=== PATIENT | male | born 2000 | race Caucasian/White ===

== ENCOUNTER 2024-06-03 10:19 | Inpatient (IN) | payer SELFPAY ==
[2024-06-03 13:40] VITALS: BP 118/78; PULSE 113; RESP 17; TEMP 36.4; O2SAT 96
[2024-06-03] MEDS: nicotine 4 mg lozenge MUCOUS MEM (13:56)
[2024-06-03] MEDS: hyDROXYzine 25 mg Capsule 50 MG PO (13:56)
[2024-06-03 15:28] VITALS: BMI 36.6
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
[2024-06-03 20:47] VITALS: BP 112/71; PULSE 119; RESP 18; TEMP 36.7; O2SAT 96
[2024-06-03] MEDS: hyDROXYzine 25 mg Capsule 100 MG PO (21:04)
[2024-06-03] MEDS: trazodone 50 mg Tablet PO (21:17)
[2024-06-03] MEDS: OLANZapine 5 mg ODT PO (21:58)
[2024-06-04 06:00] VITALS: BP 104/68; PULSE 85; RESP 17; TEMP 36.4; O2SAT 98
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
[2024-06-04] MEDS: flu vacc pf 24-25 (6 mos+) SYRINGE 45 MCG IM (09:39)
[2024-06-04 14:00] VITALS: BP 96/67; PULSE 98; RESP 16; TEMP 36.7; O2SAT 98
[2024-06-04] MEDS: hyDROXYzine 25 mg Capsule 100 MG PO (20:59)
[2024-06-04] MEDS: OLANZapine 5 mg ODT PO (20:59)
[2024-06-04] MEDS: nicotine 4 mg lozenge MUCOUS MEM (20:59)
[2024-06-04 21:28] VITALS: BP 103/65; PULSE 98; RESP 18; TEMP 36.6; O2SAT 97
[2024-06-04] MEDS: haloperidol 5 mg Tablet PO (22:18)
[2024-06-05 06:00] VITALS: BP 98/75; PULSE 93; RESP 17; TEMP 36.4; O2SAT 97
[2024-06-05] MEDS: paliperidone ER 6 mg Tablet PO (12:07)
--- NOTE | 2024-06-05 12:28 | PC.NURSE ---
NEW ORDERS RECEIVED FROM DR. WOODSON TO START INVEGA 6 MG PO NOW AND THEN DAILY. EDUCATED PT ON NEW ORDERS. VERBALIZED UNDERSTANDING.
--- NOTE | 2024-06-05 12:43 | P.NPUPN_ITS ---
Subjective NPU Subjective: Patient presented today reporting that he is feeling pretty good. He reports feeling confident about our plan with his medication and being hopeful that that works out as well as it was working before the medication seemed to stop working. We discussed the plan for him to get his injection tomorrow and he is reporting that he is tolerating the oral dose that was given to augment his medication. He denies any side effects to the medication and reports that he feels good about everything that is going on here. We discussed the likelihood of getting him the increased dose and then considering discharge in the days to follow. Mental Status Exam MSE Comments: This is an obese white male in hospital scrubs with limited grooming and eye contact. No abnormal movements except for psychomotor retardation. Cooperative with exam in mild distress. Speech was slightly decreased rate and volume. Mood described as a little better than yesterday, affect subdued. Thought process organized. Thought content: Patient denied current suicidal or homicidal ideation, he endorsed having some paranoia and there was guardedness in his assessment, he denied auditory or visual hallucinations. Had a passive wish and attempted suicide by overdosing on trazodone in the past. Experienced auditory hallucinations and has seen things twice. Anxiety is not as severe as it used to be. Experienced severe depression starting in middle school, with symptoms including sleeping too much. Current mood is reported as normal. Stressors include homelessness and family issues. Attention and concent ration were mostly intact and memory was somewhat reliable but none were formally tested. He is alert and oriented x 3. Insight and judgment are limited and impulse control was limited. Vitals/I&O/Wt Last Vital Signs Temp 97.5 F L 06/05/24 06:00 Pulse 93 06/05/24 06:00 Resp 17 06/05/24 06:00 BP 98/75 06/05/24 06:00 Pulse Ox 97 06/05/24 06:00 O2 Del Method Room Air 06/05/24 06:00 Weight last 48 hrs Weight 125.645 kg Weight 122.47 kg A&P Assessment and plan (1) Schizoaffective disorder, bipolar type: (2) Anxiety: (3) Depression: Plan This is a 24-year-old white male with a long history of mental health challenges with some past hospitalizations and current follow-up currently on medications/Invega Sustenna with reports of having breakthrough symptoms on his current dose. Indra Farooq reports having been diagnosed with schizophrenia and bipolar disorder. The patient is experiencing breakthrough symptoms of auditory hallucinations despite being on Invega injection, which was initiated on May 09, 2024. There is a history of manic episodes and a previous diagnosis of bipolar disorder following an overdose on trazodone. The patient also reports a history of depression starting in middle school, with self-injurious behavior occurring as recently as six months ago. Anxiety is present but reportedly less severe than in the past. There is a family history of depression and bipolar disorder. Plan 1. Begin Invega 6 mg orally starting tonight to manage symptoms until the scheduled injection next week. Consider discussing the potential addition of an antidepressant or anti-anxiety agent to address reported symptoms, while avoiding complicating the current medication regimen. Further evaluation and adjustments to be pursued with the social work team starting Wednesday. Continue on the Invega Sustenna but increase that to 234 mg IM on 06/06/2024. 2. Continue every 15 minute checks for safety. 3. Encourage individual, group and milieu therapies. 4. Obtain collateral information. PDMP PDMP Reviewed: Not Reviewed Attestations NPU Medical Necessity Statement*: Inpatient hospitalization is medically necessary and the clinically appropriate intervention at this time. We will monitor medications and make changes as indicated. Likely length of stay 4-6 days. Coding Level of Care Code Acute Code for g Fwd Diagnoses Schizoaffective disorder, bipolar type F25.0 Anxiety F41.9 Depression F32.A
[2024-06-05 14:00] VITALS: BP 122/69; PULSE 97; RESP 17; TEMP 36.4; O2SAT 96
[2024-06-05] MEDS: nicotine 2 mg Gum BUCCAL (15:19)
[2024-06-05] MEDS: nicotine 4 mg lozenge MUCOUS MEM ×3 (16:13→20:43)
[2024-06-05 20:36] VITALS: BP 117/76; PULSE 125; RESP 18; TEMP 36.3; O2SAT 96
[2024-06-05] MEDS: hyDROXYzine 25 mg Capsule 100 MG PO (20:43)
[2024-06-05] MEDS: OLANZapine 5 mg ODT PO (20:43)
[2024-06-05] MEDS: haloperidol 5 mg Tablet PO (21:54)
[2024-06-06 06:00] VITALS: BP 113/75; PULSE 98; RESP 18; TEMP 36.6; O2SAT 96
--- NOTE | 2024-06-06 06:31 | P.NPUPN_ITS ---
Subjective NPU Subjective: Patient presented today reporting that things are going okay. He endorsed that things are fine and there was no issue with the injection today. He reports that he is very excited because he was able to speak to his parents and that they agreed that he could return to their place and live there moving forward. He reports that is where he was living before he became homeless. He reports that the difficulty is that he and his father do not see eye to eye. But he reports it has always been that way and they should be able to manage. He denies any side effects to the medication. Mental Status Exam MSE Comments: This is an obese white male in hospital scrubs with limited grooming and eye contact. No abnormal movements except for psychomotor retardation. Cooperative with exam in mild distress. Speech was slightly decreased rate and volume. Mood described as a little better than yesterday, affect subdued. Thought process organized. Thought content: Patient denied current suicidal or homicidal ideation, he endorsed having some paranoia and there was guardedness in his assessment, he denied auditory or visual hallucinations. Had a passive wish and attempted suicide by overdosing on trazodone in the past. Experienced auditory hallucinations and has seen things twice. Anxiety is not as severe as it used to be. Experienced severe depression [facility] in [facility], with symptoms including sleeping too much. Current mood is reported as normal. Stressors include homelessness and family issues. Attention and concentration were mostly intact and memory was somewhat reliable but none were formally tested. He is alert and oriented x 3. Insight and judgment are limited and impulse control was limited. Vitals/I&O/Wt Last Vital Signs Temp 97.4 F L 06/05/24 20:36 Pulse 125 H 06/05/24 20:36 Resp 18 06/05/24 20:36 BP 117/76 06/05/24 20:36 Pulse Ox 96 06/05/24 20:36 O2 Del Method Room Air 06/05/24 20:36 A&P Assessment and plan (1) Schizoaffective disorder, bipolar type: (2) Anxiety: (3) Depression: Plan This is a 24-year-old white male with a long history of mental health challenges with some past hospitalizations and current follow-up currently on medications/Invega Sustenna with reports of having breakthrough symptoms on his current dose. Indra Farooq reports having been diagnosed with schizophrenia and bipolar disorder. The patient is experiencing breakthrough symptoms of auditory hallucinations despite being on Invega injection, which was initiated on May 09, 2024. There is a history of manic episodes and a previous diagnosis of bi polar disorder following an overdose on trazodone. The patient also reports a history of depression starting in middle school, with self-injurious behavior occurring as recently as six months ago. Anxiety is present but reportedly less severe than in the past. There is a family history of depression and bipolar disorder. Plan 1. Begin Invega 6 mg orally starting tonight to manage symptoms until the scheduled injection next week. Consider discussing the potential addition of an antidepressant or anti-anxiety agent to address reported symptoms, while avoiding complicating the current medication regimen. Further evaluation and adjustments to be pursued with the social work team starting Wednesday. Continue on the Invega Sustenna but increased that to 234 mg IM on 06/06/2024. 2. Continue every 15 minute checks for safety. 3. Encourage individual, group and milieu therapies. 4. Obtain collateral information. Will verify that he is able to return home which would be a much more stable situation and would suggest that discharge would be possible in the next 48 hours. PDMP PDMP Reviewed: Not Reviewed Attestations NPU Medical Necessity Statement*: Inpatient hospitalization is medically necessary and the clinically appropriate intervention at this time. We will monitor medications and make changes as indicated. Likely length of stay 1-3 days. Coding Level of Care Code Acute Code for g Fwd Diagnoses Schizoaffective disorder, bipolar type F25.0 Anxiety F41.9 Depression F32.A
[2024-06-06] MEDS: paliperidone ER 6 mg Tablet PO (08:32)
[2024-06-06] MEDS: paliperidone palmitate 234 mg Syringe IM (11:33)
--- NOTE | 2024-06-06 11:37 | PC.NURSE ---
Invega 234mg/1.5ml given today in right deltoid, pt. tolerated well with no complications.
[2024-06-06 14:00] VITALS: BP 111/66; PULSE 106; RESP 17; TEMP 36.7; O2SAT 96
[2024-06-06] MEDS: nicotine 4 mg lozenge MUCOUS MEM ×2 (17:11→20:35)
[2024-06-06] MEDS: sennosides-docusate Tablet 1 TAB PO (17:47)
[2024-06-06 20:09] VITALS: BP 122/79; PULSE 129; RESP 18; TEMP 36.5; O2SAT 96
[2024-06-06] MEDS: hyDROXYzine 25 mg Capsule 100 MG PO (20:34)
[2024-06-06] MEDS: acetaminophen 325 mg Tablet 650 MG PO (20:34)
[2024-06-06] MEDS: OLANZapine 5 mg ODT PO (20:35)
[2024-06-06] MEDS: haloperidol 5 mg Tablet PO (21:42)
[2024-06-07 06:00] VITALS: BP 90/55; PULSE 86; RESP 18; TEMP 36.5; O2SAT 96
[2024-06-07] MEDS: paliperidone ER 6 mg Tablet PO (08:40)
[2024-06-07] MEDS: sennosides-docusate Tablet 1 TAB PO (08:40)
[2024-06-07] MEDS: nicotine 4 mg lozenge MUCOUS MEM ×3 (12:06→16:32)
[2024-06-07 14:00] VITALS: BP 124/81; PULSE 124; RESP 17; TEMP 36.6; O2SAT 95
--- NOTE | 2024-06-07 14:20 | P.NPUPN_ITS ---
Subjective NPU Subjective: Patient presented today reporting that he is feeling positive. He reports that he is spoken with his family and feels optimistic about things moving forward. He reports that he is tolerating the medication at this time with no issues denying any side effects. He reported being happy about the prospect of the plan for discharge tomorrow and denied any other concerns. Mental Status Exam MSE Comments: This is an obese white male in hospital scrubs with limited grooming and eye contact. No abnormal movements except for psychomotor retardation. Cooperative with exam in mild distress. Speech was slightly decreased rate and volume. Mood described as better, affect less subdued. Thought process organized. Thought content: Patient denied current suicidal or homicidal ideation, he en dorsed reduced paranoia and there were no delusions noted, he denied auditory or visual hallucinations. Attention and concentration were mostly intact and memory was somewhat reliable but none were formally tested. He is alert and oriented x 3. Insight and judgment are improving and impulse control was limited, but improving. Vitals/I&O/Wt Last Vital Signs Temp 97.7 F 06/07/24 06:00 Pulse 86 06/07/24 06:00 Resp 18 06/07/24 06:00 BP 90/55 06/07/24 06:00 Pulse Ox 96 06/07/24 06:00 O2 Del Method Room Air 06/07/24 06:00 A&P Assessment and plan (1) Schizoaffective disorder, bipolar type: (2) Anxiety: (3) Depression: Plan This is a 24-year-old white male with a long history of mental health challenges with some past hospitalizations and current follow-up currently on medications/Invega Sustenna with reports of having breakthrough symptoms on his current dose. Indra Capri reports having been diagnosed with schizophrenia and bipolar disorder. The patient is experiencing breakthrough symptoms of auditory hallucinations despite being on Invega injection, which was initiated on May 09, 2024. There is a history of manic episodes and a previous diagnosis of bipolar disorder following an overdose on trazodone. The patient also reports a history of depression starting in middle school, with self-injurious behavior occurring as recently as six months ago. Anxiety is present but reportedly less severe than in the past. There is a family history of depression and bipolar disorder. Plan 1. Begin Invega 6 mg orally starting tonight to manage symptoms until the scheduled injection next week. Consider discussing the potential addition of an antidepressant or anti-anxiety agent to address reported symptoms, while avoiding complicating the current medication regimen. Further evaluation and adjustments to be pursued with the social work team starting Wednesday. Continue on the Invega Sustenna but increased that to 234 mg IM on 06/06/2024. 2. Continue every 15 minute checks for safety. 3. Encourage individual, group and milieu therapies. 4. Obtain collateral information. Treatment team spoke with family and plan for discharge tomorrow. PDMP PDMP Reviewed: Not Reviewed Attestations NPU Medical Necessity Statement*: Inpatient hospitalization is medically necessary and the clinically appropriate intervention at this time. We will monitor medications and make changes as indicated. Likely length of stay 1 day.. Coding Level of Care Code Acute Code for [facility] Diagnoses Schizoaffective disorder, bipolar type F25.0 Anxiety F41.9 Depression F32.A
[2024-06-07 20:19] VITALS: BP 101/61; PULSE 100; RESP 18; TEMP 36.8; O2SAT 95
[2024-06-07] MEDS: acetaminophen 325 mg Tablet 650 MG PO (20:22)
[2024-06-07] MEDS: hyDROXYzine 25 mg Capsule 100 MG PO (20:23)
[2024-06-07] MEDS: OLANZapine 5 mg ODT PO (20:55)
[2024-06-07] MEDS: haloperidol 5 mg Tablet PO (22:59)
[2024-06-08 06:00] VITALS: BP 110/63; PULSE 96; RESP 18; TEMP 36.6; O2SAT 97
[2024-06-08] MEDS: hyDROXYzine 25 mg Capsule 50 MG PO (08:42)
[2024-06-08] MEDS: paliperidone ER 6 mg Tablet PO (08:42)
[2024-06-08] MEDS: sennosides-docusate Tablet 1 TAB PO (08:42)
--- NOTE | 2024-06-08 08:48 | PC.NURSE ---
RESTING IN BED. STATES HE IS MILDLY ANXIOUS DUE TO DISCHARGE TODAY. VISTARIL 50 MG GIVEN ORDERED FOR INCREASED ANXIETY. AFFECT REMAINS FLAT. DENIES PAIN. DENIES SI/HI AND AVH AT THIS TIME. TOOK MEDICATIONS WITHOUT COMPLICATION. SUPPORT VOICED.
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
[2024-06-08 09:41] VITALS: BP 98/60; PULSE 80; RESP 18; TEMP 36.9; O2SAT 98
[2024-06-08] MEDS: nicotine 4 mg lozenge MUCOUS MEM (10:33)
== END 2024-06-08 11:23 | disposition home or self-care (01) | DRG 885 ==
PROVIDERS: Admitting Provider Psychiatry & Neurology Psychiatry; Visit Provider Psychiatry & Neurology Psychiatry
DX: F25.0 Schizoaffective disorder, bipolar type (principal); Z59.00 Homelessness unspecified; F41.9 Anxiety disorder, unspecified; F32.A Depression, unspecified; Z91.52 Personal history of nonsuicidal self-harm; Z81.8 Family history of other mental and behavioral disorders; E66.9 Obesity, unspecified; Z68.37 Body mass index [BMI] 37.0-37.9, adult; Z91.410 Personal history of adult physical and sexual abuse; F17.210 Nicotine dependence, cigarettes, uncomplicated; F17.290 Nicotine dependence, other tobacco product, uncomplicated
CPT/HCPCS: 90471; 90686; 96372; 97150; 97165